=== PATIENT | male | born 1935 | race Caucasian/White ===

== ENCOUNTER 2020-03-24 10:01 | Observation (INO) | payer MEDICARE, OTHER ==
[~2020-03-24] VITALS: Ht 172.7 cm; Wt 88.5 kg
[~2020-03-24 10:01] MED LIST: ASPIR 8181 MG PO; ASPIRIN; CHOLESTEROL PILL; FLOMAX; FLOMAX0.4 MG PO; KEFLEX500 MG PO; LASIX40 MG PO; METOPROLOL TART25 MG PO; NORVASC5 MG PO; POTASSIUM CHLO10 ME1 PO; SIMVASTATIN40 MG PO; TYLENOL WITH C1 EACH PO; ZOFRAN ODT4 MG SL; [UNRECOGNIZED DRUG - REMARK]; [UNRECOGNIZED DRUG - REMARK]; [UNRECOGNIZED DRUG - REMARK]
--- NOTE | 2020-03-24 10:31 | Emergency Department Note ---
History of Present Illnes History of Present Illness Chief Complaint: General Medicine Complaints History of Present Illness This is a 85 year old male . Chief Complaint Comment Patient in from primary doctor's office via EMS with reports of dizziness for the last week, weakness and hypertension. Per EMS the patient had a blood pressure of 210/120 at the doctor's office and was give 0.1mg of clonidine PO. Patient's BP in triage is 168/96. Patient states that he is still a little dizzy. Denies recent falls or head trauma and changes to his medications. 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 Any updates have been documented here. Past Medical History Recent Fever: No Clinical Suspicion of Infectio: No New/Unexplained Change in Ment: No Past Medical History: Hypertension, Cancer, Hyperlipedemia Other Medical History: PVD BPH Prostate Cancer Past Surgical History: Knee Replacement Other Surgery: knee replacement Social History Smoking Cessation: Former smoker Physically hurt or threatened: No Other Last Tetanus: unknown Review of Systems Review of Systems Constitutional: Reports as per HPI EENTM: Reports no symptoms Cardiovascular: Reports no symptoms Respiratory: Reports no symptoms Gastrointestinal: Reports no symptoms Genitourinary: Reports no symptoms Musculoskeletal: Reports no symptoms Integumentary: Reports no symptoms Neurological: Reports no symptoms, Reports as per HPI Psychological: Reports no symptoms Endocrine: Reports no symptoms Hematological/Lymphatic: Reports no symptoms Physical Exam Related Data Allergies: Coded Allergies: ciprofloxacin (Verified Allergy, Unknown, 05/17/16) Triage Vital Signs Vital Signs Date Time Temp Pulse Resp B/P (MAP) Pulse Ox O2 Delivery O2 Flow Rate FiO2 03/24/20 10:07 97.8 68 19 168/96 97 Room Air Vital signs reviewed: Yes Physical Exam CONSTITUTIONAL Constitutional: Present well-developed, Present ill appearing HENT HENT: Present normocephalic, Present atraumatic, Present oropharynx clear/moist, Present nose normal HENT L/R: Present left ext ear normal, Present right ext ear normal EYES Eyes: Reports PERRL, Reports conjunctivae normal NECK Neck: Present ROM normal PULMONARY Pulmonary: Present effort normal, Present breath sounds normal CARDIOVASCULAR Cardiovascular: Present regular rhythm, Present heart sounds normal, Present capillary refill normal, Present normal rate GASTROINTESTINAL Abdominal: Present soft, Present nontender, Present bowel sounds normal GENITOURINARY Genitourinary: Present exam deferred SKIN Skin: Present warm, Present dry MUSCULOSKELETAL Musculoskeletal: Present ROM normal NEUROLOGICAL Neurological: Present alert, Present no gross motor or sensory deficits PSYCHOLOGICAL Psychological: Present mood/affect normal, Present judgement normal Results Laboratory Lab results reviewed: Yes Laboratory comments Laboratory Tests Test 03/24/20 12:28 03/24/20 10:13 White Blood Count 7.64 x10e3/uL (4.8-10.8) Red Blood Count 5.05 x10e6/uL (4.3-5.7) Hemoglobin 16.2 g/dL (14.0-18.0) Hematocrit 47.1 % (38.2-49.6) Mean Corpuscular Volume 93.3 fL (81-99) Mean Corpuscular Hemoglobin 32.1 pg (28-32) Mean Corpuscular Hemoglobin Concent 34.4 g/dL (31-35) Red Cell Distribution Width 13.1 % (11.7-14.4) Platelet Count 233 x10e3/uL (140-360) Neutrophils (%) (Auto) 85.3 % (38.7-80.0) Lymphocytes (%) (Auto) 8.0 % (18.0-39.1) Monocytes (%) (Auto) 5.8 % (4.4-11.3) Eosinophils (%) (Auto) 0.1 % (0.0-6.0) Basophils (%) (Auto) 0.3 % (0.0-1.0) Neutrophils # (Auto) 6.5 (2.1-6.9) Lymphocytes # (Auto) 0.6 (1.0-3.2) Monocytes # (Auto) 0.4 (0.2-0.8) Eosinophils # (Auto) 0.0 (0.0-0.4) Basophils # (Auto) 0.0 (0.0-0.1) Absolute Immature Granulocyte (auto 0.04 x10e3/uL (0-0.1) Sodium Level 142 mmol/L (136-145) Potassium Level 3.3 mmol/L (3.5-5.1) Chloride Level 104 mmol/L (98-107) Carbon Dioxide Level 25 mmol/L (22-29) Anion Gap 16.3 mmol/L (8-16) Blood Urea Nitrogen 13 mg/dL (7-26) Creatinine 0.80 mg/dL (0.72-1.25) Estimat Glomerular Filtration Rate > 60 ML/MIN (60-) BUN/Creatinine Ratio 16 (6-25) Glucose Level 122 mg/dL (74-118) Calcium Level 8.8 mg/dL (8.4-10.2) Total Bilirubin 1.8 mg/dL (0.2-1.2) Aspartate Amino Transf (AST/SGOT) 18 IU/L (5-34) Alanine Aminotransferase (ALT/SGPT) 12 IU/L (0-55) Alkaline Phosphatase 96 IU/L (40-150) Creatine Kinase 39 IU/L (30-200) Creatine Kinase MB 1.00 ng/mL (0-5.0) Troponin I 0.006 ng/mL (0-0.300) Total Protein 6.9 g/dL (6.5-8.1) Albumin 4.0 g/dL (3.5-5.0) Globulin 2.9 g/dL (2.3-3.5) Albumin/Globulin Ratio 1.4 (0.8-2.0) Imaging Imaging results reviewed: Yes Procedures 12 Lead ECG Interpretation ECG Interpretation : ECG: ECG 1 Separator Tender: Interpreted by ED physician Prior ECG tracings: reviewed Rhythm: sinus bradycardia Ectopy: atrial premature contractions Rate: bradycardia Conduction: left bundle branch block ST segments normal: Yes T waves normal: Yes Clinical Impression: abnormal ECG Assessment & Plan Medical Decision Making MDM 85-year-old male arrives to the ED with complaints of dizziness that is worsening. Patient noted markedly hypertensive at [facility] office, given clonidine in the yesenia office which did improve blood pressure. Patient is a poor historian, daughter at bedside. Patient admitted for cardiac markers and puncture monitoring. Assessment & Plan Final Impression: (1) Hypertensive urgency Depart Disposition: ADMITTED Last Vital Signs Date Time Temp Pulse Resp B/P (MAP) Pulse Ox O2 Delivery O2 Flow Rate FiO2 03/24/20 10:07 97.8 68 19 168/96 97 Room Air Home Meds Reported Medications Ondansetron (ZOFRAN ODT) 4 Mg Tab.rapdis, 4 MG SL Q4HR PRN for NAUSEA, TAB 05/21/16 Acetaminophen With Codeine (TYLENOL WITH CODEINE #3 TABLET) 1 Each Tablet, 300 MG PO Q6H PRN for PAIN, TAB 05/21/16 Simvastatin (SIMVASTATIN) 40 Mg Tablet, 40 MG PO 2100, #30 TAB 12/24/15 Aspirin (ASPIR 81) 81 Mg Tablet.dr, 81 MG PO DAILY 12/24/15 Metoprolol Tartrate (METOPROLOL TARTRATE) 25 Mg Tablet, 12.5 MG PO BID, TAB 12/24/15 Amlodipine Besylate (NORVASC) 5 Mg Tab, 5 MG PO DAILY, #30 TAB 12/24/15 Tamsulosin Hcl* (FLOMAX*) 0.4 Mg Cap, 0.4 MG PO DAILY, #30 CAP 12/24/15 Potassium Chloride (POTASSIUM CHLORIDE) 10 Meq Tab.er.prt, 10 MEQ PO, TAB 12/24/15 Furosemide (LASIX) 40 Mg Tablet, 40 MG PO DAILY, #30 TAB 12/24/15 TEVIN ELMORE, Mar 24, 2020 10:31
[2020-03-24 10:38] LABS: BASOPHILS % 0.3 % (0.0-1.0); EOSINOPHILS % 0.1 % (0.0-6.0); HEMATOCRIT 47.1 % (38.2-49.6); HEMOGLOBIN 16.2 g/dL (14.0-18.0); LYMPHOCYTES # (AUTO) 0.6 (1.0-3.2); MEAN CORPUSCULAR HEMOGLOBIN 32.1 pg (28-32); MEAN CORPUSCULAR HGB CONC 34.4 g/dL (31-35); MEAN CORPUSCULAR VOLUME 93.3 fL (81-99); MONOCYTES # (AUTO) 0.4 (0.2-0.8); MONOCYTES % 5.8 % (4.4-11.3); NEUTROPHILS # (AUTO) 6.5 (2.1-6.9); NEUTROPHILS % 85.3 % (38.7-80.0); PLATELET COUNT 233 x10e3/uL (140-360); RED BLOOD COUNT 5.05 x10e6/uL (4.3-5.7); RED CELL DISTRIBUTION WIDTH 13.1 % (11.7-14.4)
[2020-03-24 11:08] LABS: ALANINE AMINOTRANSFERASE 12 IU/L (0-55); ALBUMIN/GLOBULIN RATIO 1.4 (0.8-2.0); ALKALINE PHOSPHATASE 96 IU/L (40-150); ANION GAP 16.3 mmol/L (8-16); BLOOD UREA NITROGEN 13 mg/dL (7-26); BUN/CREATININE RATIO 16 (6-25); CALCIUM 8.8 mg/dL (8.4-10.2); CARBON DIOXIDE 25 mmol/L (22-29); CHLORIDE 104 mmol/L (98-107); CREATINE KINASE 39 IU/L (30-200); EST GLOMERULAR FILTRATION RATE > 60 ML/MIN (60-); GLUCOSE 122 mg/dL (74-118); POTASSIUM 3.3 mmol/L (3.5-5.1); SODIUM 142 mmol/L (136-145)
--- NOTE | 2020-03-24 11:53 | Diagnostic Imaging Report ---
Exam: Head CT without contrast History: Dizziness Comparison studies: Prior head CT of 05/17/2016 is unavailable on the PACS at the time of dictation. Technique: Axial images were obtained from the skull base to the vertex. Coronal and sagittal images reconstructed from the axial data. Dose modulation, iterative reconstruction, and/or weight based adjustment of the mA/kV was utilized to reduce the radiation dose to as low as reasonably achievable. Radiation dose: Total DLP: 921.4 mGy*cm. Estimated effective dose: DLP x 0.015 Intravenous contrast: None Findings: Scalp: No abnormalities. Bones: No fractures, blastic or lytic lesions. Brain sulci: Mildly prom. Ventricles: Mild compensatory dilatation. No hydrocephalus. Extra-axial spaces: No masses, no fluid collection. Parenchyma: Ill-defined and confluent hypodensities in the supratentorial white matter are nonspecific but are most compatible with chronic microvascular ischemic changes. Similar findings were described on the prior head CT. Chronic insult in the left lateral orbitofrontal gyrus with encephalomalacia which was also described on the prior 05/17/2016 report, possibly sequela of remote trauma. No mass, acute hemorrhage or acute cortical insults. Sellar/suprasellar region: No abnormalities. Craniocervical junction: Patent foramen magnum. No Chiari one malformation. Included paranasal sinuses: Obstructed left ostiomeatal unit (OMU) with opacified left frontal sinus, frontoethmoidal recess, anterior ethmoid and left maxillary sinus with mucosal thickening and inspissated secretions. Remaining included sinuses are clear Incidental findings: Left intraocular lens replacement. Atherosclerotic calcifications in the carotid siphons and in the right intradural vertebral artery. IMPRESSION: 1. No acute intracranial abnormalities. 2. Left-sided paranasal sinusitis with obstructed left ostiomeatal unit. 3. Mild generalized parenchymal volume loss. 4. Moderate chronic microvascular ischemic changes. 5. Chronic left orbitofrontal insult. Signed by: Dr. Yong Beltran M.D. on 03/24/2020 11:50 AM
--- OUTSIDE RECORDS SUMMARY | 2020-03-24 12:18 | XMS REPORT | Continuity of Care Document ---
Author Author [facility] t Organization [facility] Address [address] [place] [id number] Phone Unavailable Care Team Providers Care Tube Winder Name Role Phone Rut ELMORE [place] Unavailable ELISABTEH AUph[place]ut Unavailable Problems This patient has no known problems. Allergies, Adverse Reactions, Alerts This patient has no known allergies or adverse reactions. Medications This patient has no known medications. Procedures This patient has no known procedures. Results Test Description Test Time Test Comments Results Result Comments Source CT BRAIN WO 2020-03-24 11:12:00 [place] [address] Patient Name: JESSE SYLVESTER MR #: [id number] : 1935 Age/Sex: 85/M Req #: [id number] [facility] Physician: Ordered by: TEVIN ELMORE DO Report #: [id number] Location: ER Room/Bed: Procedure: [id number] CT/CT BRAIN WO Exam Date: 03/24/20 Exam Time: 1101 REPORT STATUS: Signed Exam: Head CT without contrast History: Dizziness Comparison studies: Prior head CT of 05/17/2016 is unavailable on the PACS at the time of dictation. Technique: Axial images were obtained from the skull base to the vertex. Coronal and sagittal images recon structed from the axial data. Dose modulation, iterative reconstruction, and/or weight based adjustment of the mA/kV was utilized to reduce the radiation dose to as low as reasonably achievable. Radiation dose: Total DLP: 921.4 mGy*cm. Estimated effective dose: DLP x 0.015 Intravenous contrast: None Findings: Scalp: No abnormalities. Bones: No fractures, blastic or lytic lesions. Brain sulci: Mildly prom. Ventricles: Mild compensatory dilatation. No hydrocephalus. Extra-axial spaces: No masses, no fluid collection. Parenchyma: Ill-defined and co nfluent hypodensities in the supratentorial white matter are nonspecific but are most compatible with chronic microvascular ischemic changes. Similar findings were described on the prior head CT. Chronic insult in the left lateral orbitofrontal gyrus with encephalomalacia which was also described on the prior 05/17/2016 report, possibly sequela of remote trauma. No mass, acute hemorrhage or acute cortical insults. Sellar/suprasellar region: No abnormalities. Craniocervical junction: Patent foramen magnum. No Chiari one malformation. Included paranasal sinuses: Obstructed left ostiomeatal unit (OMU) with opacified left frontal sinus, frontoethmoidal recess, anterior ethmoid and left maxillary sinus with mucosal thickening and inspissated secretions. Remaining included sinuses are clear Incidental findings: Left intraocular lens replacement. Atherosclerotic calcifications in the carotid siphons and in the right intradural vertebral artery. IMPRESSION: 1. No acute intracranial abnormalities. 2. Left-sided paranasal sinusitis with obstructed left ostiomeatal unit. 3. Mild generalized parenchymal volume loss. 4. Moderate chronic microvascular ischemic changes. 5. Chronic left orbitofrontal insult. Signed by: Dr. Brigid Beltran M.D. on 03/24/2020 11:50 AM Dictated By: BRIGID BELTRAN MD 1150 Transcribed By: REECE on 03/24/20 1150 COPY TO: TEVIN ELMORE DO
--- OUTSIDE RECORDS SUMMARY | 2020-03-24 12:35 | XMS REPORT | Continuity of Care Document ---
Author Author [facility] t Organization [facility] Address [address] [place] [phone] Phone Unavailable Care Team Providers Care Resource Development Director Name Role Phone Rut ELMORE [place] Unavailable ELISABETH AU[place] Unavailable Problems This patient has no known problems. Allergies, Adverse Reactions, Alerts This patient has no known allergies or adverse reactions. Medications This patient has no known medications. Procedures This patient has no known procedures. Results Test Description Test Time Test Comments Results Result Comments Source CT BRAIN WO 2020-03-24 11:12:00 [place] [address] Patient Name: JESSE SYLVESTER MR #: [id number] : 1935 Age/Sex: 85/M Req #: [id number] [facility] Physician: Ordered by: TEVIN ELMORE DO Report #: [id number] Location: ER Room/Bed: Procedure: [id number] CT/CT BRAIN WO Exam Date: 03/24/20 Exam [...]
--- NOTE | 2020-03-24 14:00 | NUR ---
PT ARRIVED FROM ER. PT IS AAOX3. EDUCATED PT ABOUT FALL PRECAUTIONS. PT VERBALIZED UNDERSTANDING. CALL LIGHT WITH IN EASY REACH. BED IS LOW AND LOCKED. SIDE RAILS X2. BED ALARM IS ON. ALL SAFETY MEASURES IN PLACE. PT DENIES NEEDS AT THIS TIME.
--- NOTE | 2020-03-24 14:10 | NUR ---
PT HOME MEDS RECONFIRMED WITH PT AND PT DAUGHTER ANTHONY OVER THE PHONE.
[2020-03-24 14:30] VITALS: BP 149/65
[2020-03-24 15:11] VITALS: BP 165/97
[2020-03-24 16:08] VITALS: BP 149/65
--- NOTE | 2020-03-24 16:15 | NUR ---
PT VITALS RECHECKED. BP 165/97 HR HR 60 [address] 3[address] P[address] MYLES AND REPORTED THE SAME.
--- NOTE | 2020-03-24 16:20 | NUR ---
PT HAS SB . INFORMED DR. TRAN. CHATMAN TO ADMINISTER NIFEDIPINE 30 MG PO ONCE PER THE
[2020-03-24] MEDS ORDERED: NIFEDIPINE 10 MG CAP PO ONE (16:30)
[2020-03-24] MEDS ORDERED: HYDRALAZINE HCL 25 MG TAB PO PRN (16:45)
[2020-03-24] MEDS ORDERED: ONDANSETRON HCL 4 MG ORAL DISINTEGRATING TAB SL PRN (16:45)
[2020-03-24] MEDS ORDERED: ACETAMINOPHEN 325 MG TAB PO PRN (16:45)
[2020-03-24] MEDS ORDERED: ACETAMINOPHEN/CODEINE 300MG - 30MG TAB PO PRN (16:45)
[2020-03-24] MEDS ORDERED: NIFEDIPINE CR 30 MG TAB PO ONE (16:45)
[2020-03-24] MEDS ORDERED: TAMSULOSIN HCL 0.4 MG CAP PO SCH (17:00)
[2020-03-24] MEDS ORDERED: POTASSIUM CHLORIDE 10MEQ EA PO ONE (17:30)
--- NOTE | 2020-03-24 17:55 | NUR ---
TRANSFER PT TO 291 PER ELEMENTARY ART TEACHER. TRANSFER REPORT GIVEN TO THE RN.
[2020-03-24] MEDS ORDERED: LISINOPRIL 10 MG TAB PO SCH (18:00)
--- NOTE | 2020-03-24 18:30 | NUR ---
PT TRANSFERRED SAFELY TO ROOM 101. PT DENIED FURTHER NEEDS.
--- NOTE | 2020-03-24 18:40 | NUR ---
RCD PT FROM [facility] 3 BY WHEEL CHAIR PT IS ALERT AND ORIENTED VITALS CHECKED ,FAMILY AT BED SIDE BED LOW AND LOCKED CALL LIGHT IN REACH
--- NOTE | 2020-03-24 18:53 | NUR ---
PT RESTING ON BED BED SIDE REPORT GIVEN TO ONCOMING NURSE
--- NOTE | 2020-03-24 19:00 | NUR ---
Resumed care of patient. Patient awake and sitting in recliner, no s/s of distress at this time. Patient instructed to call for assistance if needed, verbalized understanding. All safety measures in place. Family at bedside.
--- NOTE | 2020-03-24 19:59 | NUR ---
Patient back in bed. Vital signs stable, no s/s of distress at this time. Bed locked and in lowest position, side rails upx2, alarm on, call light placed within reach. Patient instructed to call for assistance if needed, verbalized understanding. All safety measures in place. Daughter at bedside.
[2020-03-24 20:00] VITALS: BP 141/85
[2020-03-24] MEDS ORDERED: SIMVASTATIN 40 MG TAB PO SCH (21:00)
[2020-03-24 21:03] VITALS: BP 141/85
[2020-03-25] VITALS: BP 105/65
--- NOTE | 2020-03-25 01:42 | NUR ---
Patient's bed alarm sounding. Patient found mcc out of bed, stating that he was "coming back from the restroom." Denies needs at this time, no s/s of distress. Daughter at bedside. Patient and daughter instructed to call for assistance if needed, verbalized understanding. Bed alarm re-applied. All safety measures in place.
[2020-03-25 04:00] VITALS: BP 127/87
--- NOTE | 2020-03-25 04:37 | NUR ---
Bed alarming alerting nursing staff to bed exit. Patient found out of bed, stating he needs to use restroom. Daughter sleeping at bedside. Assisted patient to restroom using walker. Patient currently back in bed, watching TV. Bed alarm re-applied. Patient instructed to call for assistance if needed, verbalized understanding. All safety measures in place.
[2020-03-25 05:23] LABS: BASOPHILS % 0.2 % (0.0-1.0); EOSINOPHILS # (AUTO) 0.1 (0.0-0.4); EOSINOPHILS % 0.8 % (0.0-6.0); HEMATOCRIT 43.7 % (38.2-49.6); HEMOGLOBIN 14.9 g/dL (14.0-18.0); LYMPHOCYTES # (AUTO) 2.2 (1.0-3.2); LYMPHOCYTES % 25.4 % (18.0-39.1); MEAN CORPUSCULAR HGB CONC 34.1 g/dL (31-35); MEAN CORPUSCULAR VOLUME 93.8 fL (81-99); MONOCYTES % 10.9 % (4.4-11.3); NEUTROPHILS # (AUTO) 5.5 (2.1-6.9); NEUTROPHILS % 62.4 % (38.7-80.0); PLATELET COUNT 202 x10e3/uL (140-360); RED BLOOD COUNT 4.66 x10e6/uL (4.3-5.7)
[2020-03-25 05:56] LABS: ALANINE AMINOTRANSFERASE 11 IU/L (0-55); ALBUMIN 3.6 g/dL (3.5-5.0); ALBUMIN/GLOBULIN RATIO 1.4 (0.8-2.0); ALKALINE PHOSPHATASE 84 IU/L (40-150); ANION GAP 13.4 mmol/L (8-16); BLOOD UREA NITROGEN 15 mg/dL (7-26); BUN/CREATININE RATIO 20 (6-25); CALCIUM 8.4 mg/dL (8.4-10.2); CARBON DIOXIDE 24 mmol/L (22-29); CHLORIDE 106 mmol/L (98-107); CREATININE, SERUM 0.74 mg/dL (0.72-1.25); EST GLOMERULAR FILTRATION RATE > 60 ML/MIN (60-); GLUCOSE 100 mg/dL (74-118); POTASSIUM 3.4 mmol/L (3.5-5.1); SODIUM 140 mmol/L (136-145)
[2020-03-25] MEDS ORDERED: NIFEDIPINE CR 30 MG TAB PO SCH (06:00)
--- NOTE | 2020-03-25 06:58 | NUR ---
Handoff report given to oncoming nurse. Patient in stable condition, no s/s of distress at this time. Bed alarm on, all safety measures in place. Daughter at bedside.
--- NOTE | 2020-03-25 07:00 | NUR ---
RCD PT AT BED PT IS ALERT AND CONFUSED PT RESTING ON BED FAMILY AT BED SIDE IV PATENT BY SALINE FLUSH BED LOW AND LOCKED CALL LIGHT IN REACH
[2020-03-25 07:36] VITALS: BP 122/80
[2020-03-25 07:57] VITALS: BP 122/80
[2020-03-25] MEDS ORDERED: POTASSIUM CHLORIDE 10MEQ EA PO SCH (09:00)
[2020-03-25] MEDS ORDERED: FUROSEMIDE 40 MG TAB PO SCH (09:00)
[2020-03-25] MEDS ORDERED: ASPIRIN 81 MG CHEW TAB PO SCH (09:00)
[2020-03-25] MEDS ORDERED: AMLODIPINE BESYLATE 5 MG TAB PO SCH (09:00)
[2020-03-25] MEDS ORDERED: METOPROLOL TARTRATE 25 MG TAB PO SCH (09:00)
[2020-03-25] MEDS ORDERED: LISINOPRIL 2.5 MG TAB PO SCH (09:00)
[2020-03-25] MEDS ORDERED: MECLIZINE HCL 12.5 MG TAB PO SCH (10:00)
[2020-03-25] MEDS ORDERED: AMOXICILLIN/CLAVULANATE K 875 MG TAB PO SCH (10:15)
[2020-03-25] MEDS ORDERED: POTASSIUM CHLORIDE 10MEQ EA PO NR (10:15)
[2020-03-25 11:17] VITALS: BP 110/82
--- NOTE | 2020-03-25 11:29 | Consultation ---
DATE OF CONSULTATION: 03/25/2020 Cardiology Consultation CHIEF COMPLAINT: The patient is an 85-year-old, who came to the emergency room with dizziness and hypertension. HISTORY OF PRESENT ILLNESS: The patient is an 85-year-old, who came to the emergency room with markedly elevated blood pressure of 210/120. The patient was given clonidine and subsequently admitted. The patient has also been reporting constant dizziness. The patient has had no nausea, no vomiting, no abdominal pain. PAST MEDICAL HISTORY: Significant for; 1. Prostatic cancer. 2. Previous knee replacement. 3. Hypertension. 4. Hyperlipidemia. SOCIAL HISTORY: The patient has been a smoker in the past. The patient does not drink. FAMILY HISTORY: There is a known family history of hypertension and hypercholesterol and heart disease. PHYSICAL EXAMINATION: GENERAL: The patient is an older male, in no obvious distress. VITAL SIGNS: Included a temperature of 97.7, pulse is 64, and blood pressure of 122/80. HEAD, EARS, EYES, NOSE, AND THROAT: The patient's cranium was normocephalic and atraumatic. Extraocular muscles were intact. Sclerae were anicteric. Pupils were equal, round, and reactive to light. There was no pallor or cyanosis of the oral mucosa. There is no erythema or edema of the throat. NECK: Supple. No jugular venous distention. No carotid bruits. CHEST: Demonstrated rhonchi bilaterally. CARDIAC: Demonstrated normal S1 and S2 with no murmurs, rubs, or gallops. ABDOMEN: Demonstrated good bowel sounds. No tenderness and no masses. EXTREMITIES: There was no clubbing, no cyanosis, no edema. NEUROLOGIC: The patient was alert and oriented. Cranial nerves were intact. Motor strength was intact in all limbs. IMAGING: The patient's EKG demonstrated sinus bradycardia with a left bundle-branch block. IMPRESSION: The patient is an 85-year-old with accelerated hypertension and dizziness. The patient's blood pressure is markedly improved. The echocardiogram has been completed and shows normal left ventricular size and function with no aortic stenosis. RECOMMENDATIONS: 1. It is okay for the patient to be discharged on his current blood pressure regimen of amlodipine, lisinopril, and metoprolol. 2. I will encourage the patient to return to our office next week to further evaluate his dizziness. MD SCOT Bonilla/DAXL /[id number]
--- NOTE | 2020-03-25 11:42 | NUR ---
AC TO RADIOLOGY THEY DOING MRI ON FRIDAY PAGED AND NOTIFIED DR MYLES GOT THE DISCHARGE ORDER SINCE THE FAMILY WANTED TO GO HOME
[2020-03-25] MEDS ORDERED: NIFEDIPINE ER30 M1 PO (11:47)
[2020-03-25] MEDS ORDERED: LISINOPRIL5 MG PO (11:47)
[2020-03-25] MEDS ORDERED: AUGMENTIN 875-1 EACH PO (11:49)
[2020-03-25] MEDS ORDERED: MECLIZINE HCL12.5 MG PO (11:49)
--- NOTE | 2020-03-25 12:36 | NUR ---
PT WENT HOME IN SAFE CONDITION WITH HIS DAUGHTER
--- NOTE | 2020-03-25 13:15 | History and Physical ---
CHIEF COMPLAINT: Hypertensive urgency, generalized weakness and lower extremity edema. HISTORY OF PRESENT ILLNESS: The patient is an 85 years male, basically has hypertensive urgency, systolic blood pressure over 200 first in the patient's primary care physician office. When he was dizzy he took all his medication, came to the office because of dizziness and found to have systolic blood pressure over 200. The patient brought to the emergency room and in the emergency room the patient's blood pressure was 168/96 after he was given clonidine 0.1 mg. The patient's blood pressure has been fluctuating per the patient's daughter. The patient also complained of dizziness when the blood pressure was elevated. Currently, the patient had some dizziness, but it is improving. His dizziness is quite nonspecific dizziness when he laid down, when he sits up and when he stand up. It is not waxed and waned. It did not improve even when he sit up or stand up for a period of time. The patient also has chronic venous stasis skin changes of the lower extremity associated with edema. The patient is otherwise stable. He does not have any chest pain or shortness of breath. His potassium was low at 3.4, replacement was done. The patient is otherwise stable. Echocardiogram showed ejection fraction of 55% to 60%. Carotid Doppler is still pending. The patient is otherwise stable at this time. PAST MEDICAL HISTORY: Hypertension, obesity, history of prostate cancer, enlarged prostate, peripheral vascular disease, left knee replacement, former smoker, dyslipidemia, lower extremity venous stasis skin changes, lower extremity dependent edema, and reflux. PAST SURGICAL HISTORY: Cholecystectomy. SOCIAL HISTORY: The patient does not smoke. He quit smoking many years ago. No drinking. ALLERGIES: CIPRO. HOME MEDICATIONS: The patient was on Tylenol #3, aspirin, Lasix, metoprolol tartrate, Zofran, potassium, simvastatin, and Flomax. PHYSICAL EXAMINATION: VITAL SIGNS: Temperature was 97.8, blood pressure 168/96, pulse rate was 68, respirations 20. GENERAL: The patient is not in acute distress. HEENT: Normocephalic, atraumatic and anicteric. NECK: Supple grossly. PULMONARY: Clear. CARDIOVASCULAR: Regular rate and rhythm. ABDOMEN: Morbidly obese. EXTREMITIES: Chronic venous stasis skin changes. There is edema. There is no open wound. No ulcers. NEUROLOGIC: The patient is awake and alert x3, moving all extremities without any focal deficit. LABORATORY DATA: WBC 7.6, hemoglobin 16, hematocrit 47, and platelets 233. Chemistry sodium 142, potassium 3.3, chloride 104, bicarb 25, BUN 13, creatinine 0.8, glucose 122. CT scan of the brain without contrast showed no acute findings. No bleed. Chronic left orbital frontal insult. Moderate chronic microvascular ischemic changes. Mild generalized volume loss. Left side pansinusitis with obstructed left ostiomeatal unit. IMPRESSION: 1. Hypertensive urgency. 2. Hypokalemia. 3. Chronic venous stasis skin changes. 4. Chronic sinusitis. PLAN: Continue with some home medication. Add on lisinopril 5 mg twice a day. Discontinue the Norvasc 5 mg. Start the patient on nifedipine XL 30 mg daily. Resume the patient's home medication. Sinusitis treatment with Augmentin 875 mg twice a day for 7 days. We will continue to monitor the patient closely. Adjust the patient's potassium replacement. We will obtain MRI of the brain without contrast. Echocardiogram already done. Obtain a carotid Doppler. Consultation with Dr. Yong He. MD BERNARDINO Frank/MODL /[id number]
[2020-03-26] MEDS ORDERED: NIFEDIPINE CR 30 MG TAB PO SCH (06:00)
--- NOTE | 2020-03-26 23:56 | Discharge Summary ---
PRIMARY CARE PHYSICIAN: . SILVICULTURIST: Dr. Yong He. FINAL DIAGNOSES: 1. Hypertensive urgency, controlled. 2. Chronic sinusitis. 3. Dizziness, most likely multifactorial, improved with meclizine. SUMMARY: An 85-year-old male, came in with dizziness. The patient had systolic blood pressure 210. The patient was given clonidine on the way and then subsequently blood pressure was in the 180s. His blood pressure medication has been adjusted. Please review the prescription and the MAR on discharge. The patient had some dizziness. CT scan of the brain, carotid Doppler, and echocardiogram were otherwise unremarkable without any acute finding. The patient was pending for MRI of the brain, but will not be done until Friday. Therefore, the patient's daughter wants the patient to follow up with the patient's family physician and possible if needed order an MRI as an outpatient. The patient's blood pressure much better controlled, dizziness improving. The patient is started on Augmentin 875 mg twice a day. He tolerated the first dose. Prescription was given for 7 days for chronic sinusitis. [facility], the patient will take nifedipine XR 30 mg once a day. He was on lisinopril 5 mg twice a day. Other than that, the patient will resume his home medications. Meclizine 12.5 mg q.6 hours as needed. The patient is otherwise stable. He is ambulatory with the walker and he is improving. The patient will follow up with his family physician for blood pressure check. Activity as tolerated. 2 g sodium diet. Fall precaution. MD BERNARDINO Frank/DAXL /[id number]
== END 2020-03-25 12:36 | disposition home or self-care (01) ==
LOC: ER 10:15 → INTOOBSV 11:35 → ERHOLD 11:35 → MED/SURG3 13:56 → MED/SURG 18:43
PROVIDERS: ADMIT Internal Medicine; ATTEND Internal Medicine
DX: I16.0 Hypertensive urgency (principal); J32.9 Chronic sinusitis, unspecified; Z11.59 Encounter for screening for other viral diseases; Z85.46 Personal history of malignant neoplasm of prostate; E78.5 Hyperlipidemia, unspecified; R41.3 Other amnesia; N40.0 Benign prostatic hyperplasia without lower urinary tract symptoms; I89.0 Lymphedema, not elsewhere classified; E87.6 Hypokalemia; I87.2 Venous insufficiency (chronic) (peripheral)
CPT/HCPCS: 36415 ×2; 70450; 80053 ×2; 82550; 82553; 84484; 85025 ×2; 93306; 93880; 99284; G0378 ×2; J8597; U0002

== ENCOUNTER 2021-03-28 08:17 | Emergency (ER) | payer MEDICARE ==
[~2021-03-28] VITALS: Ht 172.7 cm; Wt 88.5 kg
[~2021-03-28 08:17] MED LIST changes: +AUGMENTIN 875-1 EACH PO; +LISINOPRIL5 MG PO; +MECLIZINE HCL12.5 MG PO; +NIFEDIPINE ER30 M1 PO
[2021-03-28 09:00] LABS: BASOPHILS % 0.5 % (0.0-1.0); EOSINOPHILS # (AUTO) 0.2 (0.0-0.4); HEMATOCRIT 44.9 % (38.2-49.6); LYMPHOCYTES # (AUTO) 2.2 (1.0-3.2); LYMPHOCYTES % 27.3 % (18.0-39.1); MEAN CORPUSCULAR HEMOGLOBIN 32.2 pg (28-32); MEAN CORPUSCULAR HGB CONC 33.4 g/dL (31-35); MEAN CORPUSCULAR VOLUME 96.4 fL (81-99); MONOCYTES # (AUTO) 0.9 (0.2-0.8); MONOCYTES % 10.7 % (4.4-11.3); NEUTROPHILS # (AUTO) 4.7 (2.1-6.9); NEUTROPHILS % 59.1 % (38.7-80.0); PLATELET COUNT 189 x10e3/uL (140-360); RED BLOOD COUNT 4.66 x10e6/uL (4.3-5.7); RED CELL DISTRIBUTION WIDTH 13.2 % (11.7-14.4)
[2021-03-28] MEDS ORDERED: HYDRALAZINE HCL 20 MG/ML VIAL IV STA (09:00)
[2021-03-28] MEDS ORDERED: ASPIRIN 81 MG CHEW TAB PO ONE (09:00)
[2021-03-28] MEDS ORDERED: SODIUM CHLORIDE 0.9% 500ML 500 ML IV STA (09:00)
[2021-03-28 10:24] LABS: ALBUMIN 3.5 g/dL (3.5-5.0); ALBUMIN/GLOBULIN RATIO 1.1 (0.8-2.0); ANION GAP 15.9 mmol/L (8-16); CALCIUM 8.5 mg/dL (8.4-10.2); CREATININE, SERUM 0.78 mg/dL (0.72-1.25); POTASSIUM 3.9 mmol/L (3.5-5.1)
[2021-03-28 10:47] LABS: CREATINE KINASE MB 1.3 ng/mL (0-5.0)
[2021-03-28 11:27] VITALS: BP 166/81
== END 2021-03-28 11:29 | disposition home or self-care (01) ==
LOC: ER 08:45
DX: R42 Dizziness and giddiness (principal); R94.31 Abnormal electrocardiogram [ECG] [EKG]; F03.90 Unspecified dementia, unspecified severity, without behavioral disturbance, psychotic disturbance, mood disturbance, and anxiety; I10 Essential (primary) hypertension; E78.5 Hyperlipidemia, unspecified; I73.9 Peripheral vascular disease, unspecified; Z85.46 Personal history of malignant neoplasm of prostate
CPT/HCPCS: 36415; 70450; 71045; 80053; 82550; 82553; 84484; 85025; 93005; 99284; J0360; J7040

== ENCOUNTER 2021-05-30 12:25 | Emergency (ER) | payer MEDICARE ==
[~2021-05-30] VITALS: Ht 172.7 cm; Wt 88.5 kg
[2021-05-30] MEDS ORDERED: CLEOCIN HCL300 MG PO ×2 (12:42→12:48)
[2021-05-30 13:21] VITALS: BP 152/80
== END 2021-05-30 13:22 | disposition home or self-care (01) ==
LOC: ER 12:30
DX: L03.116 Cellulitis of left lower limb (principal); L03.115 Cellulitis of right lower limb; F03.90 Unspecified dementia, unspecified severity, without behavioral disturbance, psychotic disturbance, mood disturbance, and anxiety; I10 Essential (primary) hypertension; E78.5 Hyperlipidemia, unspecified; I73.9 Peripheral vascular disease, unspecified; Z85.46 Personal history of malignant neoplasm of prostate
CPT/HCPCS: 99283

== ENCOUNTER 2021-08-22 17:01 | Inpatient (IN) | payer MEDICARE ==
[~2021-08-22] VITALS: Ht 172.7 cm; Wt 88.5 kg
[~2021-08-22 17:01] MED LIST changes: +CLEOCIN HCL300 MG PO
[2021-08-22] MEDS ORDERED: Vancomycin IV 1 GM in SODIUM CHLORIDE 0.9% 250ML 250 ML IV SCH (17:15)
[2021-08-22 17:32] LABS: BASOPHILS % 0.5 % (0.0-1.0); EOSINOPHILS # (AUTO) 0.2 (0.0-0.4); EOSINOPHILS % 3.5 % (0.0-6.0); HEMATOCRIT 41.5 % (38.2-49.6); HEMOGLOBIN 13.4 g/dL (14.0-18.0); LYMPHOCYTES # (AUTO) 2.2 (1.0-3.2); LYMPHOCYTES % 33.2 % (18.0-39.1); MEAN CORPUSCULAR HGB CONC 32.3 g/dL (31-35); MONOCYTES # (AUTO) 0.8 (0.2-0.8); MONOCYTES % 12.4 % (4.4-11.3); NEUTROPHILS # (AUTO) 3.3 (2.1-6.9); NEUTROPHILS % 50.1 % (38.7-80.0); PLATELET COUNT 263 x10e3/uL (140-360); RED BLOOD COUNT 4.19 x10e6/uL (4.3-5.7); RED CELL DISTRIBUTION WIDTH 14.5 % (11.7-14.4)
[2021-08-22 17:50] LABS: ALBUMIN/GLOBULIN RATIO 0.8 (0.8-2.0); ANION GAP 14.1 mmol/L (8-16); CALCIUM 9.1 mg/dL (8.4-10.2); CREATININE, SERUM 0.97 mg/dL (0.72-1.25); POTASSIUM 4.1 mmol/L (3.5-5.1)
[2021-08-22] MEDS ORDERED: SODIUM CHLORIDE FLUSH 10 ML SYR INJ PRN (18:00)
[2021-08-22] MEDS ORDERED: ONDANSETRON HCL INJ 2MG/ML 2ML 2 MG/ML VIAL IV PRN (18:00)
[2021-08-22] MEDS ORDERED: PIPERACILLIN/TAZOBACTAM 3.375 GM in SODIUM CHLORIDE 0.9% 50ML 50 ML IV SCH (18:00)
[2021-08-22] MEDS ORDERED: ACETAMINOPHEN 325 MG TAB PO PRN (18:00)
[2021-08-22 22:01] VITALS: BP 168/102
[2021-08-22] MEDS: PIPERACILLIN/TAZOBACTAM 3.375 GM in SODIUM CHLORIDE 0.9% 50ML 50 ML IV SCH (23:19)
[2021-08-22 23:30] VITALS: BP 168/102
[2021-08-22 23:32] VITALS: BP 168/102
[2021-08-23] VITALS (9 sets, daily range): BP systolic 121–148; BP diastolic 74–93
[2021-08-23] MEDS: PIPERACILLIN/TAZOBACTAM 3.375 GM in SODIUM CHLORIDE 0.9% 50ML 50 ML IV SCH ×4 (05:24→22:08)
[2021-08-23] MEDS: Vancomycin IV 1 GM in SODIUM CHLORIDE 0.9% 250ML 250 ML IV SCH ×2 (05:24→18:28)
[2021-08-23 06:10] LABS: BASOPHILS % 0.1 % (0.0-1.0); EOSINOPHILS % 0.5 % (0.0-6.0); HEMOGLOBIN 12.5 g/dL (14.0-18.0); LYMPHOCYTES # (AUTO) 1.1 (1.0-3.2); LYMPHOCYTES % 13.8 % (18.0-39.1); MEAN CORPUSCULAR HEMOGLOBIN 32.2 pg (28-32); MEAN CORPUSCULAR HGB CONC 33.8 g/dL (31-35); MEAN CORPUSCULAR VOLUME 95.4 fL (81-99); MONOCYTES % 12.3 % (4.4-11.3); NEUTROPHILS # (AUTO) 5.8 (2.1-6.9); NEUTROPHILS % 72.8 % (38.7-80.0); PLATELET COUNT 244 x10e3/uL (140-360); RED BLOOD COUNT 3.88 x10e6/uL (4.3-5.7); RED CELL DISTRIBUTION WIDTH 14.1 % (11.7-14.4)
[2021-08-23] MEDS ORDERED: SODIUM CHLORIDE 0.9% 250ML 250 ML ONE (09:02)
[2021-08-23] MEDS ORDERED: ONDANSETRON HCL 4 MG ORAL DISINTEGRATING TAB SL PRN (10:30)
[2021-08-23] MEDS ORDERED: NIFEDIPINE CR 30 MG TAB PO SCH (10:30)
[2021-08-23] MEDS ORDERED: ARICEPT5 MG PO (11:56)
[2021-08-23] MEDS ORDERED: IRBESARTAN150 MG PO (11:56)
[2021-08-23] MEDS ORDERED: CELEBREX100 MG PO (11:56)
[2021-08-23] MEDS ORDERED: GABAPENTIN100 MG PO (11:56)
[2021-08-23] MEDS ORDERED: LIPITOR10 MG PO (11:56)
[2021-08-23] MEDS ORDERED: LEXAPRO20 MG PO (11:56)
[2021-08-23] MEDS: FUROSEMIDE INJ 10 MG/ML 4 ML VIAL IV SCH (12:33)
[2021-08-23] MEDS ORDERED: METOPROLOL TARTRATE 25 MG TAB PO SCH (17:00)
[2021-08-23] MEDS ORDERED: LISINOPRIL 2.5 MG TAB PO SCH (17:00)
[2021-08-23] MEDS: MECLIZINE HCL 12.5 MG TAB PO SCH ×2 (17:32→20:32)
[2021-08-23] MEDS: IRBESARTAN 150 MG TAB PO SCH (17:32)
[2021-08-23] MEDS: POTASSIUM CHLORIDE 10MEQ EA PO SCH (18:43)
[2021-08-23] MEDS: SIMVASTATIN 40 MG TAB PO SCH (20:32)
[2021-08-23] MEDS: ACETAMINOPHEN/CODEINE 300MG - 30MG TAB PO PRN (21:16)
[2021-08-24] VITALS (8 sets, daily range): BP systolic 105–142; BP diastolic 67–87
[2021-08-24] MEDS: ACETAMINOPHEN/CODEINE 300MG - 30MG TAB PO PRN ×2 (03:01→20:23)
[2021-08-24] MEDS: PIPERACILLIN/TAZOBACTAM 3.375 GM in SODIUM CHLORIDE 0.9% 50ML 50 ML IV SCH ×4 (04:28→22:24)
[2021-08-24 05:26] LABS: ANION GAP 14.7 mmol/L (8-16); CALCIUM 8.4 mg/dL (8.4-10.2); CREATININE, SERUM 0.93 mg/dL (0.72-1.25); POTASSIUM 3.7 mmol/L (3.5-5.1)
[2021-08-24] MEDS: Vancomycin IV 1 GM in SODIUM CHLORIDE 0.9% 250ML 250 ML IV SCH ×2 (05:34→18:49)
[2021-08-24] MEDS: FUROSEMIDE INJ 10 MG/ML 4 ML VIAL IV SCH ×2 (08:28→13:00)
[2021-08-24] MEDS: MECLIZINE HCL 12.5 MG TAB PO SCH ×3 (09:42→20:22)
[2021-08-24] MEDS: IRBESARTAN 150 MG TAB PO SCH (09:42)
[2021-08-24] MEDS: ASPIRIN 81 MG CHEW TAB PO SCH (09:42)
[2021-08-24] MEDS: TAMSULOSIN HCL 0.4 MG CAP PO SCH (09:42)
[2021-08-24] MEDS: POTASSIUM CHLORIDE 10MEQ EA PO SCH ×2 (09:43→17:20)
[2021-08-24] MEDS: SIMVASTATIN 40 MG TAB PO SCH (20:22)
[2021-08-25] VITALS (8 sets, daily range): BP systolic 123–143; BP diastolic 66–85
[2021-08-25] MEDS: PIPERACILLIN/TAZOBACTAM 3.375 GM in SODIUM CHLORIDE 0.9% 50ML 50 ML IV SCH ×4 (04:21→22:11)
[2021-08-25] MEDS: Vancomycin IV 1 GM in SODIUM CHLORIDE 0.9% 250ML 250 ML IV SCH ×2 (05:25→18:00)
[2021-08-25] MEDS: FUROSEMIDE INJ 10 MG/ML 4 ML VIAL IV SCH ×2 (09:00→12:28)
[2021-08-25] MEDS: ASPIRIN 81 MG CHEW TAB PO SCH (09:51)
[2021-08-25] MEDS: IRBESARTAN 150 MG TAB PO SCH (09:51)
[2021-08-25] MEDS: TAMSULOSIN HCL 0.4 MG CAP PO SCH (09:51)
[2021-08-25] MEDS: MECLIZINE HCL 12.5 MG TAB PO SCH ×3 (09:51→20:42)
[2021-08-25] MEDS: POTASSIUM CHLORIDE 10MEQ EA PO SCH ×2 (09:52→17:00)
[2021-08-25] MEDS: ACETAMINOPHEN/CODEINE 300MG - 30MG TAB PO PRN ×2 (09:55→20:42)
[2021-08-25] MEDS: SIMVASTATIN 40 MG TAB PO SCH (20:42)
[2021-08-26] VITALS (9 sets, daily range): BP systolic 122–160; BP diastolic 72–97
[2021-08-26] MEDS: PIPERACILLIN/TAZOBACTAM 3.375 GM in SODIUM CHLORIDE 0.9% 50ML 50 ML IV SCH ×4 (04:50→23:08)
[2021-08-26 06:28] LABS: BASOPHILS % 0.5 % (0.0-1.0); EOSINOPHILS # (AUTO) 0.3 (0.0-0.4); EOSINOPHILS % 4.4 % (0.0-6.0); HEMATOCRIT 37.5 % (38.2-49.6); HEMOGLOBIN 12.4 g/dL (14.0-18.0); LYMPHOCYTES # (AUTO) 1.5 (1.0-3.2); LYMPHOCYTES % 26.2 % (18.0-39.1); MEAN CORPUSCULAR HEMOGLOBIN 32.3 pg (28-32); MEAN CORPUSCULAR HGB CONC 33.1 g/dL (31-35); MEAN CORPUSCULAR VOLUME 97.7 fL (81-99); MONOCYTES # (AUTO) 0.6 (0.2-0.8); NEUTROPHILS # (AUTO) 3.3 (2.1-6.9); NEUTROPHILS % 58.7 % (38.7-80.0); PLATELET COUNT 224 x10e3/uL (140-360); RED BLOOD COUNT 3.84 x10e6/uL (4.3-5.7); RED CELL DISTRIBUTION WIDTH 14.2 % (11.7-14.4)
[2021-08-26 06:50] LABS: ANION GAP 14.5 mmol/L (8-16); CALCIUM 7.9 mg/dL (8.4-10.2); POTASSIUM 3.5 mmol/L (3.5-5.1)
[2021-08-26] MEDS: FUROSEMIDE INJ 10 MG/ML 4 ML VIAL IV SCH ×2 (09:00→13:02)
[2021-08-26] MEDS: TAMSULOSIN HCL 0.4 MG CAP PO SCH (09:41)
[2021-08-26] MEDS: MECLIZINE HCL 12.5 MG TAB PO SCH ×3 (09:41→20:34)
[2021-08-26] MEDS: IRBESARTAN 150 MG TAB PO SCH (09:41)
[2021-08-26] MEDS: POTASSIUM CHLORIDE 10MEQ EA PO SCH ×2 (09:41→17:20)
[2021-08-26] MEDS: ASPIRIN 81 MG CHEW TAB PO SCH (09:41)
[2021-08-26] MEDS: SIMVASTATIN 40 MG TAB PO SCH (20:34)
[2021-08-26] MEDS: ACETAMINOPHEN/CODEINE 300MG - 30MG TAB PO PRN (20:35)
[2021-08-27] VITALS (9 sets, daily range): BP systolic 120–140; BP diastolic 64–91
[2021-08-27] MEDS: PIPERACILLIN/TAZOBACTAM 3.375 GM in SODIUM CHLORIDE 0.9% 50ML 50 ML IV SCH ×4 (05:24→23:11)
[2021-08-27] MEDS: ACETAMINOPHEN/CODEINE 300MG - 30MG TAB PO PRN (06:53)
[2021-08-27] MEDS: FUROSEMIDE INJ 10 MG/ML 4 ML VIAL IV SCH ×2 (08:00→11:41)
[2021-08-27] MEDS: POTASSIUM CHLORIDE 10MEQ EA PO SCH ×2 (08:44→17:00)
[2021-08-27] MEDS: TAMSULOSIN HCL 0.4 MG CAP PO SCH (08:44)
[2021-08-27] MEDS: IRBESARTAN 150 MG TAB PO SCH (08:44)
[2021-08-27] MEDS: MECLIZINE HCL 12.5 MG TAB PO SCH ×3 (08:44→22:05)
[2021-08-27] MEDS: ASPIRIN 81 MG CHEW TAB PO SCH (08:44)
[2021-08-27] MEDS: SIMVASTATIN 40 MG TAB PO SCH (22:04)
[2021-08-28] VITALS (9 sets, daily range): BP systolic 122–165; BP diastolic 71–89
[2021-08-28] MEDS: PIPERACILLIN/TAZOBACTAM 3.375 GM in SODIUM CHLORIDE 0.9% 50ML 50 ML IV SCH ×4 (05:44→23:34)
[2021-08-28] MEDS: FUROSEMIDE INJ 10 MG/ML 4 ML VIAL IV SCH ×2 (09:07→12:00)
[2021-08-28] MEDS: IRBESARTAN 150 MG TAB PO SCH (09:07)
[2021-08-28] MEDS: MECLIZINE HCL 12.5 MG TAB PO SCH ×3 (09:07→20:41)
[2021-08-28] MEDS: POTASSIUM CHLORIDE 10MEQ EA PO SCH ×2 (09:07→17:21)
[2021-08-28] MEDS: ASPIRIN 81 MG CHEW TAB PO SCH (09:07)
[2021-08-28] MEDS: TAMSULOSIN HCL 0.4 MG CAP PO SCH (09:07)
[2021-08-28] MEDS: SIMVASTATIN 40 MG TAB PO SCH (20:41)
[2021-08-28] MEDS ORDERED: MELATONIN 5 MG TABLET PO PRN (21:00)
[2021-08-29 04:00] VITALS: BP 137/93
[2021-08-29] MEDS: PIPERACILLIN/TAZOBACTAM 3.375 GM in SODIUM CHLORIDE 0.9% 50ML 50 ML IV SCH ×3 (07:36→17:26)
[2021-08-29] MEDS: MECLIZINE HCL 12.5 MG TAB PO SCH ×2 (08:28→14:52)
[2021-08-29] MEDS: IRBESARTAN 150 MG TAB PO SCH (08:28)
[2021-08-29] MEDS: ASPIRIN 81 MG CHEW TAB PO SCH (08:28)
[2021-08-29] MEDS: FUROSEMIDE INJ 10 MG/ML 4 ML VIAL IV SCH ×2 (08:28→11:20)
[2021-08-29] MEDS: TAMSULOSIN HCL 0.4 MG CAP PO SCH (08:28)
[2021-08-29] MEDS: POTASSIUM CHLORIDE 10MEQ EA PO SCH ×2 (08:29→17:27)
[2021-08-29 08:32] VITALS: BP 123/104
[2021-08-29 08:36] VITALS: BP 123/104
[2021-08-29 12:07] VITALS: BP 138/97
[2021-08-29 15:57] VITALS: BP 120/91
[2021-08-30] MEDS ORDERED: FUROSEMIDE 40 MG TAB PO SCH (08:00)
== END 2021-08-29 18:10 | disposition home or self-care (01) | DRG 299 ==
LOC: ER 17:23 → ERHOLD 17:51 → MED/SURG2 20:24
PROVIDERS: ADMIT Internal Medicine; ATTEND Internal Medicine
DX: I87.2 Venous insufficiency (chronic) (peripheral) (principal); I50.33 Acute on chronic diastolic (congestive) heart failure; L03.116 Cellulitis of left lower limb; L03.115 Cellulitis of right lower limb; I89.0 Lymphedema, not elsewhere classified; F03.90 Unspecified dementia, unspecified severity, without behavioral disturbance, psychotic disturbance, mood disturbance, and anxiety; E78.5 Hyperlipidemia, unspecified; Z20.822 Contact with and (suspected) exposure to COVID-19; Z88.1 Allergy status to other antibiotic agents; Z99.3 Dependence on wheelchair; I11.0 Hypertensive heart disease with heart failure; I73.9 Peripheral vascular disease, unspecified; N40.0 Benign prostatic hyperplasia without lower urinary tract symptoms; Z91.19 Patient's noncompliance with other medical treatment and regimen
CPT/HCPCS: 36415; 80048; 80053; 80202; 85025; 94799; 99284; J1940; J2405; J2543; J3370; J7050; U0002

== ENCOUNTER 2022-02-24 08:53 | Emergency (ER) | payer MEDICARE, OTHER ==
[~2022-02-24] VITALS: Ht 172.7 cm; Wt 88.5 kg
[~2022-02-24 08:53] MED LIST changes: +ARICEPT5 MG PO; +CELEBREX100 MG PO; +GABAPENTIN100 MG PO; +IRBESARTAN150 MG PO; +LEXAPRO20 MG PO; +LIPITOR10 MG PO
[2022-02-24 09:43] LABS: BASOPHILS % 0.1 % (0.0-1.0); EOSINOPHILS % 0.1 % (0.0-6.0); HEMATOCRIT 43.4 % (38.2-49.6); HEMOGLOBIN 15.1 g/dL (14.0-18.0); LYMPHOCYTES # (AUTO) 0.5 (1.0-3.2); LYMPHOCYTES % 3.2 % (18.0-39.1); MEAN CORPUSCULAR HEMOGLOBIN 33.3 pg (28-32); MEAN CORPUSCULAR HGB CONC 34.8 g/dL (31-35); MEAN CORPUSCULAR VOLUME 95.6 fL (81-99); MONOCYTES # (AUTO) 0.9 (0.2-0.8); MONOCYTES % 6.2 % (4.4-11.3); NEUTROPHILS # (AUTO) 12.8 (2.1-6.9); NEUTROPHILS % 89.8 % (38.7-80.0); PLATELET COUNT 161 x10e3/uL (140-360); RED BLOOD COUNT 4.54 x10e6/uL (4.3-5.7); RED CELL DISTRIBUTION WIDTH 13.2 % (11.7-14.4)
[2022-02-24 09:51] LABS: INR 0.97; PARTIAL THROMBOPLASTIN TIME 29.2 seconds (23.8-35.5); PROTHROMBIN TIME 13.8 seconds (11.9-14.5)
[2022-02-24 10:08] LABS: CREATINE KINASE MB 1.1 ng/mL (0-5.0)
[2022-02-24 10:11] LABS: ALBUMIN 3.7 g/dL (3.5-5.0); ALBUMIN/GLOBULIN RATIO 1.3 (0.8-2.0); CALCIUM 8.4 mg/dL (8.4-10.2); CREATININE, SERUM 0.93 mg/dL (0.72-1.25); MAGNESIUM 1.8 MG/DL (1.3-2.1)
[2022-02-24 10:15] LABS: SALICYLATE < 5.0 mg/dL (0-30)
[2022-02-24 10:18] LABS: AMPHETAMINES SCREEN,URINE NEGATIVE (NEGATIVE); BENZODIAZEPINES SCREEN,URINE NEGATIVE (NEGATIVE); PHENCYCLIDINE SCREEN,URINE NEGATIVE (NEGATIVE)
[2022-02-24 10:19] LABS: CLARITY,URINE SL CLOUDY (CLEAR); COLOR,URINE YELLOW (YELLOW); KETONES,URINE TRACE (NEGATIVE); LEUKOCYTE ESTERASE ,URINE NEGATIVE (NEGATIVE); NITRITE,URINE NEGATIVE (NEGATIVE); PROTEIN,URINE DIPSTICK 1+ (NEGATIVE); URINE UROBILINOGEN 0.2 mg/dL (0.2 - 1)
[2022-02-24 10:36] LABS: BACTERIA,URINE FEW /HPF; RBC,URINE 0-5 /HPF (0-5); WBC,URINE (MAN) 0-5 /HPF (0-5)
[2022-02-24 12:19] VITALS: BP 167/90
== END 2022-02-24 12:35 | disposition home or self-care (01) ==
LOC: ER 09:06
DX: S51.012A Laceration without foreign body of left elbow, initial encounter (principal); S51.011A Laceration without foreign body of right elbow, initial encounter; W01.0XXA Fall on same level from slipping, tripping and stumbling without subsequent striking against object, initial encounter; Y92.89 Other specified places as the place of occurrence of the external cause; F03.90 Unspecified dementia, unspecified severity, without behavioral disturbance, psychotic disturbance, mood disturbance, and anxiety; I10 Essential (primary) hypertension; E78.5 Hyperlipidemia, unspecified; E03.9 Hypothyroidism, unspecified; Z20.822 Contact with and (suspected) exposure to COVID-19; Z85.46 Personal history of malignant neoplasm of prostate
CPT/HCPCS: 36415; 51700; 70450; 71045; 72125; 72170; 80053; 80307; 80320; 80329 ×2; 81001; 82550; 82553; 83735; 83880; 84484; 85025; 85610; 85730; 87086; 93005; 99284; U0002